=== PATIENT | female | born 1955 | race Caucasian/White ===

== ENCOUNTER 2016-06-01 08:25 | Emergency (ER) | payer OTHER ==
[2016-06-01 08:44] VITALS: BP 123/84; PULSE 90; RESP 18; TEMP 99; O2SAT 99
--- NOTE | 2016-06-01 08:50 | UCPHY ---
H & P Patient Type: Established Chief Complaint Nursing Narrative: lower abd pain for 2 weeks, increased in last 2 days. denies n/v/d, denies urinary s/sx or fevers. states feels like diverticulitis as had before Time Seen by Provider: 06/01/16 08:30 HPI/ROS: 60-year-old female presents complaining of lower abdominal pain crampy in nature that began about 2 weeks ago but was markedly worsened overnight, she did not sleep at all last night. She has a prior history of diverticulitis her last exacerbation was last June of 2015. She states this feels exactly like her prior diverticulitis. She denies fevers chills she denies diarrhea. She denies dysuria Review of systems As per HPI General no fever no chills no weakness HEENT no eye pain no eye discharge. No eye redness, no sore throat Respiratory no cough, no shortness of breath Cardiac no chest pain, no peripheral edema GI positive abdominal pain, no diarrhea, no constipation, no nausea, no vomiting no flank pain, no hematuria, no dysuria Musculoskeletal no myalgias, no joint pain Heme no easy bruising, no easy bleeding Endo no polyuria, no polydipsia Skin no rashes, no pruritus Neuro no syncope, no dizziness, no headaches Psych is no suicidal ideation, no homicidal ideation Source: Patient Exam Limitations: No limitations - Personal History Current Tetanus/Diphtheria Vaccine: Yes - Medical/Surgical History Hx Asthma: No Hx Chronic Respiratory Disease: No Hx Diabetes: No Hx Cardiac Disease: No Hx Renal Disease: No Hx Cirrhosis: No Hx Alcoholism: No Hx HIV/AIDS: No Hx Splenectomy or Spleen Trauma: No Other PMH: / breast reduction, esophagus surg, diverticulitis - Family History Significant Family History: No pertinent family hx - Social History Smoking Status: Never smoked Alcohol Use: Occasionally Drug Use: None - Physical Exam Exam: 60-year-old female alert and oriented no acute distress nontoxic appearance, afebrile HEENT atraumatic normocephalic, extraocular muscles intact, anicteric Oropharynx negative for erythema negative exudate, tolerating her own secretions Neck supple no meningismus Lungs clear to auscultation bilaterally Heart regular rate and rhythm without murmur rub or gallop Abdomen nondistended normoactive bowel sounds, positive left lower quadrant tenderness, no rebound no guarding Back no CVA tenderness, no step-offs, no spinal tenderness Extremities no cyanosis clubbing or edema Neuro alert and oriented, no focal deficits Constitutional: Initial Vital Signs Temperature (C) 37.2 C 06/01/16 08:42 Heart Rate 90 06/01/16 08:42 Respiratory Rate 18 06/01/16 08:42 Blood Pressure 123/84 H 06/01/16 08:42 O2 Sat (%) 99 06/01/16 08:42 O2 Delivery Mode Room Air Allergies/Adverse Reactions: No Known Allergies Allergy (Unverified 06/01/16 08:41) Home Medications: Medication Instructions Recorded Ciprofloxacin [Cipro] 500 mg PO BID #20 tab 06/01/16 Metronidazole 500 mg PO TID #30 tablet 06/01/16 Medical Decision Making - Diagnostics Imaging: CT abdomen positive for diverticulitis sigmoid no abscess no perforation no free air ED Course/Re-evaluation: Patient seen and evaluated for lower abdominal pain of approximately 2 weeks duration markedly worse since last night, feel exactly like her prior diverticulitis. IV established, lab sent, CT abdomen ordered Differential diagnosis considered Diverticulitis, appendicitis, gastroenteritis, irritable bowel syndrome, ovarian mass CBC-within normal limits Lactic acid-negative CMP-within normal limits CT abdomen-sigmoid diverticulitis without abscess or perforation Impression Diverticulitis Plan Cipro twice daily times 10 days, Flagyl three times daily times 10 days Follow up with primary care physician - Data Points Laboratory Results: Laboratory Results 06/01/16 08:55 06/01/16 08:55 06/01/16 06/01/16 06/01/16 08:55 08:55 08:55 WBC 8.09 10^3/uL 10^3/uL (3.80-9.50) RBC 4.17 10^6/uL L 10^6/uL (4.18-5.33) Hgb 14.2 g/dL g/dL (12.6-16.3) Hct 40.4 % % (38.0-47.0) MCV 96.9 fL fL (81.5-99.8) MCH 34.1 pg pg (27.9-34.1) MCHC 35.1 g/dL g/dL (32.4-36.7) RDW 11.3 % L % (11.5-15.2) Plt Count 208 10^3/uL 10^3/uL (150-400) MPV 9.4 fL fL (8.7-11.7) Neut % (Auto) 77.4 % H % (39.3-74.2) Lymph % (Auto) 13.5 % L % (15.0-45.0) [place] % (Auto) 8.0 % % (4.5-13.0) Eos % (Auto) 0.5 % L % (0.6-7.6) Baso % (Auto) 0.4 % % (0.3-1.7) Nucleat RBC Rel Count 0.0 % % (0.0-0.2) Absolute Neuts (auto) 6.26 10^3/uL 10^3/uL (1.70-6.50) Absolute Lymphs (auto) 1.09 10^3/uL 10^3/uL (1.00-3.00) Absolute Monos (auto) 0.65 10^3/uL 10^3/uL (0.30-0.80) Absolute Eos (auto) 0.04 10^3/uL 10^3/uL (0.03-0.40) Absolute Basos (auto) 0.03 10^3/uL 10^3/uL (0.02-0.10) Absolute Nucleated RBC 0.00 10^3/uL 10^3/uL (0-0.01) Immature Gran % 0.2 % % (0.0-1.1) Immature Gran # 0.02 10^3/uL 10^3/uL (0.00-0.10) VBG Lactic Acid 0.7 mmol/L mmol/L (0.7-2.1) Sodium 139 mEq/L mEq/L (134-144) Potassium 4.0 mEq/L mEq/L (3.5-5.2) Chloride 102 mEq/L mEq/L (97-110) Carbon Dioxide 25 mEq/l mEq/l (22-31) Anion Gap 12 mEq/L mEq/L (8-16) BUN 12 mg/dL mg/dL (7-23) Creatinine 0.7 mg/dL mg/dL (0.6-1.0) Estimated GFR > 60 Glucose 93 mg/dL mg/dL (70-100) Calcium 9.1 mg/dL mg/dL (8.5-10.4) Total Bilirubin 0.9 mg/dL mg/dL (0.1-1.4) AST 25 IU/L IU/L (14-46) ALT 33 IU/L IU/L (9-52) Alkaline Phosphatase 76 IU/L IU/L (38-126) Total Protein 7.1 g/dL g/dL (6.3-8.2) Albumin 3.8 g/dL g/dL (3.5-5.0) Lipase 114.0 IU/L IU/L (23-300) Medications Given: Discontinued Medications Sodium Chloride (Ns) 1,000 mls @ 0 mls/hr IV ONCE ONE PRN Reason: Wide Open Stop: 06/01/16 08:52 Last Admin: 06/01/16 09:15 Dose: 1,000 mls Departure - Departure Disposition: Home, Routine, Self-Care Clinical Impression: Acute diverticulitis Condition: Good Instructions: Diverticulitis (ED), Diverticulitis Diet (ED) Referrals: Peng Morejon MD [Primary Care Provider] - As per Instructions Prescriptions: Ciprofloxacin [Cipro] 500 mg PO BID #20 tab Metronidazole 500 mg PO TID #30 tablet - PQRS PQRS Measurement: Not applicable
[2016-06-01] MEDS ORDERED: NS 1,000 ML IV ONE (08:51)
[2016-06-01 09:06] LABS: % IMMATURE GRANULYOCYTES 0.2 % (0.0-1.1); ABSOLUTE IMMATURE GRANULOCYTES 0.02 10^3/uL (0.00-0.10); ADD DIFF? NO; ADD MORPH? NO; ADD SCAN? NO; ATYPICAL LYMPHOCYTE FLAG 0 (0-99); FRAGMENT RBC FLAG 0 (0-99); HEMATOCRIT 40.4 % (38.0-47.0); HEMOGLOBIN 14.2 g/dL (12.6-16.3); LEFT SHIFT FLG 10 (0-99); LIPEMIA HEMOLYSIS FLAG 90 (0-99); MEAN CELL HEMOGLOBIN 34.1 pg (27.9-34.1); MEAN CELL HEMOGLOBIN CONCENTR. 35.1 g/dL (32.4-36.7); MEAN CELL VOLUME 96.9 fL (81.5-99.8); MEAN PLATELET VOLUME 9.4 fL (8.7-11.7); PLATELET CLUMPS FLAG 10 (0-99); PLATELET COUNT 208 10^3/uL (150-400); RED BLOOD CELL COUNT 4.17 10^6/uL (4.18-5.33); RED CELL DISTRIBUTION WIDTH 11.3 % (11.5-15.2)
[2016-06-01] MEDS ORDERED: IOPAMIDOL (ISOVUE-300) 100 ML BTL IV ONE (09:10)
[2016-06-01 09:21] LABS: ALANINE AMINOTRANSFERASE 33 IU/L (9-52); ALBUMIN 3.8 g/dL (3.5-5.0); ALKALINE PHOSPHATASE 76 IU/L (38-126); ANION GAP 12 mEq/L (8-16); ASPARTATE AMINOTRANSFERASE 25 IU/L (14-46); BILIRUBIN,TOTAL 0.9 mg/dL (0.1-1.4); CALCIUM 9.1 mg/dL (8.5-10.4); CARBON DIOXIDE 25 mEq/l (22-31); CHLORIDE 102 mEq/L (97-110); CREATININE 0.7 mg/dL (0.6-1.0); GLOMERULAR FILTRATION RATE > 60; GLUCOSE 93 mg/dL (70-100); SODIUM 139 mEq/L (134-144); TOTAL PROTEIN 7.1 g/dL (6.3-8.2)
== END 2016-06-01 10:24 | disposition home or self-care (01) ==
LOC: CED 08:25
DX: K57.32 Diverticulitis of large intestine without perforation or abscess without bleeding (principal); N20.0 Calculus of kidney; R91.1 Solitary pulmonary nodule
CPT/HCPCS: 74177-PO; 80053-PO; 83605-PO; 83690-PO; 85025-PO; 96360-PO; 99215-PO; G0463-PO; Q9967